=== PATIENT | female | born 1985 | race Two or more races ===

== ENCOUNTER 2019-05-06 06:29 | Emergency (ER) | payer OTHER ==
[~2019-05-06] VITALS: Ht 121.9 cm; Wt 77.1 kg
[2019-05-06] MEDS ORDERED: SYNTHROID175 MCG (06:43)
[2019-05-06] MEDS ORDERED: ANALPRAM HC 2.530 GM RECTAL (07:27)
== END 2019-05-06 07:57 | disposition home or self-care (01) ==
LOC: ER 06:29 → EDBD 06:32 → ER 07:57
DX: K64.4 Residual hemorrhoidal skin tags (principal)

== ENCOUNTER 2022-03-30 05:30 | Day surgery (SDC) | payer OTHER ==
[~2022-03-30 05:30] MED LIST: ANALPRAM HC 2.530 GM RECTAL; SYNTHROID175 MCG
[2022-03-30] MEDS ORDERED: PERCOCET 5-3251 EACH PO (13:02)
[2022-03-30] MEDS ORDERED: RECTICARE30 GM TOP (13:02)
== END 2022-03-30 17:25 | disposition home or self-care (01) ==
LOC: CIR.AMB 05:30
PROVIDERS: ATTEND Surgery
DX: K64.8 Other hemorrhoids (principal); K64.2 Third degree hemorrhoids; Z20.822 Contact with and (suspected) exposure to COVID-19